=== PATIENT | male | born 1980 | race Caucasian/White ===

== ENCOUNTER 2017-06-09 06:41 | Emergency (ER) | payer OTHER ==
[~2017-06-09] VITALS: Ht 177.8 cm; Wt 81.6 kg
--- NOTE | 2017-06-09 06:48 | ED GI/GU/ABDOMINAL COMPLAINT ---
History of Present Illness General Chief Complaint: Abdominal Pain/Flank Pain Stated Complaint: PT C/O ABD PAIN X'S 2 DAYS DENIES N/V/D Source: patient Exam Limitations: no limitations Vital Signs & Intake/Output Vital Signs & Intake/Output Vital Signs Date Time Temp Pulse Resp B/P B/P Pulse O2 O2 Flow FiO2 Mean Ox Delivery Rate 06/09 0759 97.5 06/09 0716 97.5 06/09 0653 97 Room Air 06/09 0652 97.5 94 18 136/82 97 Room Air Allergies Coded Allergies: peanut (Severe, ANAPHYLAXIS 06/09/17) Reconcile Medications No Known Home Medications Triage Nurses Notes Reviewed? yes Onset: Abrupt Duration: day(s):, waxing and waning Timing: recent history Location: epigastric Radiation: no radiation Activities at Onset: none Modifying Factors: Worsens With: palpation. Associated Symptoms: abdominal pain HPI: 36 yo gentleman h/o kidney stones, otherwise healthy presents with 2 days of mid epigastric, burning, sharp abdominal discomfort, worse at night. He does not identify any suspicious foods as etiology. No fever, chills, chest pain, nausea, vomiting, diarrhea, dysuria, flank pain. He is otherwise well. (Lawrence CLEMENTE,El Renteria) Past History Travel History Traveled to [place] past 21 day No Medical History Any Pertinent Medical History? see below for history Renal: nephrolithiasis Surgical History Surgical History: appendectomy Psychosocial History What is your primary language Panamanian Family History Hx Contributory? No (Lawrence CLEMENTE,El Renteria) Review of Systems Review of Systems Constitutional: Reports: no symptoms. EENTM: Reports: no symptoms. Respiratory: Reports: no symptoms. Cardiovascular: Reports: no symptoms. GI: Reports: no symptoms. Genitourinary: Reports: no symptoms. Musculoskeletal: Reports: no symptoms. Skin: Reports: no symptoms. Neurological/Psychological: Reports: no symptoms. Hematologic/Endocrine: Reports: no symptoms. Immunologic/Allergic: Reports: no symptoms. All Other Systems: Reviewed and Negative (Lawrence CLEMENTE,El Renteria) Physical Exam Physical Exam General Appearance: well developed/nourished, mild distress Head: atraumatic, normal appearance Eyes: Bilateral: normal appearance. Ears, Nose, Throat, Mouth: hearing grossly normal, moist mucous membrane Neck: normal inspection, supple, full range of motion Respiratory: normal breath sounds, chest non-tender, no respiratory distress, quiet respiration, lungs clear Cardiovascular: regular rate/rhythm Gastrointestinal: normal bowel sounds, soft, mild mid epigastric tenderness to palpation. no rebound. no guarding. no ryder's sign. no rlq tenderness. Back: normal inspection Extremities: normal range of motion Neurologic/Psych: no motor/sensory deficits, awake, alert, oriented x 3 Skin: intact, normal color, warm/dry Core Measures ACS in differential dx? No Sepsis Present: No Sepsis Focused Exam Completed? No (Lawrence CLEMENTE,[place] Renteria) Progress Differential Diagnosis: gastritis, reflux vs other. Plan of Care: Orders Procedure Date/time Status LIPASE 06/10 647 Complete HEPATIC FUNCTION PANEL 06/10 647 Complete CBC WITHOUT DIFFERENTIAL 06/10 647 Complete BASIC METABOLIC PANEL 06/10 647 Complete AMYLASE 06/10 647 Complete Laboratory Tests 06/09/17 0703: Anion Gap 11, Estimated GFR > 60, BUN/Creatinine Ratio 20.0, Glucose 103 H, Calcium 9.0, Total Bilirubin 0.8, Direct Bilirubin 0.4, AST 29, ALT 48, Alkaline Phosphatase 61, Total Protein 6.7, Albumin 4.0, Amylase 49, Lipase 133, CBC w Diff NO MAN DIFF REQ, RBC 5.18, MCV 80.6, MCH 28.2, MCHC 35.0, RDW 12.7, MPV 6.8 L, Gran % 72.0, Lymphocytes % 16.0 L, Monocytes % 10.7 H, Eosinophils % 1.0, Basophils % 0.3, Absolute Granulocytes 4.5, Absolute Lymphocytes 1.0 L, Absolute Monocytes 0.7 H, Absolute Eosinophils 0.1, Absolute Basophils 0 Initial ED EKG: none Hand-Off Endorsed To: Immanuel Ziegler MD Endorsed Time: 0700 Pending: labs, other (response to meds) (Lawrence CLEMENTE,[place] Renteria) Diagnostic Imaging: Discussed w/RAD: CT Scan. Radiology Impression: PATIENT: CAN ZAMBRANO PRESENT AGE: 36 PATIENT ACCOUNT NO: [id number] : 79 LOCATION: [facility] ORDERING PHYSICIAN: Immanuel Ziegler MD SERVICE DATE: 06/09/17 EXAM TYPE : CAT - CT ABD & PELVIS W IV CONTRAST EXAMINATION: CT ABDOMEN AND PELVIS WITH CONTRAST CLINICAL INFORMATION: 36-year-old male patient with epigastric abdominal pain and tenderness. Presumptive diagnoses: Pancreatitis, biliary colic, diverticulitis. COMPARISON: CT exams of the abdomen and pelvis on 2012 and 12/22/2012. Right-sided hydronephrosis with calculi in the ureters. TECHNIQUE: Multidetector volumetric imaging was performed of the abdomen and pelvis following IV administration of 95 mL of Optiray 320 intravenous contrast. Sagittal and coronal reformatted images were obtained on the technologist's workstation. DLP: 317 mGy-cm FINDINGS: RUG DYER HELPER: Noncontributory. LUNG BASES: The visualized lung bases are unremarkable. The focal area of minor atelectasis is seen in the left posterior costophrenic sulcus. LIVER, GALLBLADDER, AND BILIARY TREE: Normal. PANCREAS: Unremarkable. No mass or peripancreatic effusion. Normal pancreatic duct. SPLEEN: The spleen measures 12.4 cm in oblique diameter. A 1.6 cm in diameter accessory spleen is seen lying adjacent to the tail the pancreas. ADRENAL GLANDS: Unremarkable. KIDNEYS AND URETERS: The kidneys are normal in size, shape, and attenuation. No hydronephrosis, hydroureter, or calculi seen. No perinephric stranding. A tiny cortical cyst is seen in the cortex of the left renal hilum. BLADDER: Nearly empty. GASTROINTESTINAL TRACT: The small and large bowel are unremarkable. The stomach is unremarkable. Although the appendix is not clearly seen, there are no pericecal inflammatory changes. ABDOMINAL WALL: No significant hernia is appreciated. LYMPH NODES: A number of small lymph nodes are spread throughout the proximal small bowel mesentery. VASCULAR: Unremarkable. PELVIC VISCERA: Unremarkable. OSSEOUS STRUCTURES: Unremarkable. IMPRESSION: 1. Normal pancreas and biliary tree. 2. No evidence of urinary tract calculi. DICTATED BY: Bunny Hurtado MD DATE/TIME DICTATED:06/09/171003 SUPERVISOR PIPELINE MAINTENANCE:GAMA DATE/TIME TRANSCRIBED:1003 CONFIDENTIAL, DO NOT COPY WITHOUT APPROPRIATE AUTHORIZATION. < Electronically signed in Other Vendor System> SIGNED BY: Bunny Hurtado MD 06/09/17 1019 Comments: 06/09/2017 7:10:58 AM patient signed out to me by Dr. Bravo at shift change management manager. (Karlie CLEMENTE,Immanuel De Souza) Departure Departure Condition: Stable Referrals: Patient Has No Primary Care Dr (PCP/Family) Departure Forms: Customer Survey General Discharge Information (Lawrence CLEMENTE,[place] Renteria) Departure Disposition: HOME OR SELF CARE Clinical Impression Primary Impression: Abdominal pain Qualifiers: Abdominal location: epigastric Qualified Code: R10.13 - Epigastric pain Additional Instructions: Zantac as prescribed for possible acid reflux or ulcer. [place] diet. Prescriptions: Current Visit Scripts Ranitidine HCl (Zantac) 1 TAB PO QPM #15 TAB (Karlie CLEMENTE,Immanuel De Souza)
[2017-06-09 07:17] LABS: ABSOLUTE BASOPHIL COUNT 0 /CUMM (0.0-0.2); ABSOLUTE EOSINOPHIL COUNT 0.1 /CUMM (0.0-0.7); ABSOLUTE GRANULOCYTE CT 4.5 /CUMM (1.4-6.5); ABSOLUTE MONOCYTE COUNT 0.7 /CUMM (0.10-0.60); BASOPHIL % 0.3 % (0.0-2.0); HEMATOCRIT 41.8 % (42-52); MEAN CORPUSCULAR HGB 28.2 PG (27.0-31.0); MEAN CORPUSCULAR VOLUME 80.6 FL (80.0-94.0); MEAN PLATELET VOLUME 6.8 FL (7.4-10.4); PLATELET COUNT 135 /CUMM (130-400); RBC DISTRIBUTION WIDTH 12.7 % (11.5-14.5); RED BLOOD CELL CT 5.18 /CUMM (4.70-6.10); WHITE BLOOD CELL COUNT 6.3 /CUMM (4.8-10.8)
--- NOTE | 2017-06-09 10:19 | CT SCAN REPORT ---
EXAMINATION: CT ABDOMEN AND PELVIS WITH CONTRAST CLINICAL INFORMATION: 36-year-old male patient with epigastric abdominal pain and tenderness. Presumptive diagnoses: Pancreatitis, biliary colic, diverticulitis. COMPARISON: CT exams of the abdomen and pelvis on 11/30/2012 and 12/22/2012. Right-sided hydronephrosis with calculi in the ureters. TECHNIQUE: Multidetector volumetric imaging was performed of the abdomen and pelvis following IV administration of 95 mL of Optiray 320 intravenous contrast. Sagittal and coronal reformatted images were obtained on the technologist's workstation. DLP: 317 mGy-cm FINDINGS: TENSILE TESTER: Noncontributory. LUNG BASES: The visualized lung bases are unremarkable. The focal area of minor atelectasis is seen in the left posterior costophrenic sulcus. LIVER, GALLBLADDER, AND BILIARY TREE: Normal. PANCREAS: Unremarkable. No mass or peripancreatic effusion. Normal pancreatic duct. SPLEEN: The spleen measures 12.4 cm in oblique diameter. A 1.6 cm in diameter accessory spleen is seen lying adjacent to the tail the pancreas. ADRENAL GLANDS: Unremarkable. KIDNEYS AND URETERS: The kidneys are normal in size, shape, and attenuation. No hydronephrosis, hydroureter, or calculi seen. No perinephric stranding. A tiny cortical cyst is seen in the cortex of the left renal hilum. BLADDER: Nearly empty. GASTROINTESTINAL TRACT: The small and large bowel are unremarkable. The stomach is unremarkable. Although the appendix is not clearly seen, there are no pericecal inflammatory changes. ABDOMINAL WALL: No significant hernia is appreciated. LYMPH NODES: A number of small lymph nodes are spread throughout the proximal small bowel mesentery. VASCULAR: Unremarkable. PELVIC VISCERA: Unremarkable. OSSEOUS STRUCTURES: Unremarkable. IMPRESSION: 1. Normal pancreas and biliary tree. 2. No evidence of urinary tract calculi.
[2017-06-09] MEDS ORDERED: ZANTAC300 MG PO (10:28)
[2017-06-09 10:40] VITALS: BP 114/74
== END 2017-06-09 10:50 ==
LOC: ERH 06:41
PROVIDERS: Pediatrics
DX: R10.13 Epigastric pain (principal)
CPT/HCPCS: 74177; 96374; 96375; J0131